=== PATIENT | female | born 2000 | race Two or more races ===

== ENCOUNTER 2023-11-18 15:46 | Emergency (ER) | payer OTHER ==
[~2023-11-18] VITALS: Ht 157.5 cm; Wt 58.1 kg
[2023-11-18 15:54] VITALS: BP 135/69; TEMP 98.6
[2023-11-18 16:36] VITALS: O2SAT 97
== END 2023-11-18 16:37 | disposition home or self-care (01) ==
LOC: ER 15:53
DX: S09.8XXA Other specified injuries of head, initial encounter (principal); R11.0 Nausea; F19.10 Other psychoactive substance abuse, uncomplicated; W01.198A Fall on same level from slipping, tripping and stumbling with subsequent striking against other object, initial encounter; Y93.89 Activity, other specified; Y92.89 Other specified places as the place of occurrence of the external cause; Y99.8 Other external cause status